=== PATIENT | female | born 1990 | race African-American/Black ===

== ENCOUNTER 2018-08-22 11:07 | Emergency (ER) | payer OTHER ==
[~2018-08-22] VITALS: Ht 157.5 cm; Wt 83.6 kg
[2018-08-22 11:11] VITALS: BP 126/82; TEMP 98.1
[2018-08-22 11:33] LABS: COLLECTION METHOD CLEAN CATCH
[2018-08-22 11:37] LABS: BASO % 0.4 % (0.0-2.0); EOS % 0.2 % (0-4.0); GRAN # 5.4 (1.4-6.5); GRAN % 64.2 % (42.2-75.2); HEMATOCRIT 39.9 % (37.0-47.0); LYMPH # 2.4 (1.2-3.4); LYMPH % 28.2 % (20.0-51.0); MEAN CELL VOLUME 90 fl (80.0-100.0); MEAN CORPUSCULAR HEMOGLOBIN 29 pg (27.0-31.0); MEAN CORPUSCULAR HGB CONC 33 g/dl (33.0-37.0); MEAN PLATELET VOLUME 9.6 fl (7.4-10.4); MONO # 0.6 (0.1-0.6); MONO % 6.8 % (1.7-9.3); PLATELET COUNT 265 K/mm3 (130-400); RED BLOOD COUNT 4.42 M/mm3 (4.10-5.30); REDCELL DISTRIBUTION WIDTH-CV 12.9 % (11.5-14.5)
[2018-08-22 11:40] LABS: MUCOUS Present /lpf; PH 5 (5-8); SQUAMOUS EPITHELIAL 0-2 /hpf; URINE APPEARANCE Clear; URINE BACTERIA None Seen /hpf; URINE BILIRUBIN Negative (NEGATIVE); URINE BLOOD Negative (NEGATIVE); URINE COLOR Yellow; URINE GLUCOSE Negative (NEGATIVE); URINE KETONE Negative (NEGATIVE); URINE LEUKOCYTE ESTERASE Negative (NEGATIVE); URINE NITRATE Negative (NEGATIVE); URINE PROTEIN(semi-quant) Negative (NEGATIVE); URINE RBC 0-2 /hpf; URINE UROBILINOGEN Negative (NEGATIVE)
[2018-08-22 14:52] VITALS: PULSE 99
== END 2018-08-22 14:53 | disposition home or self-care (01) ==
LOC: COL.ER 11:07
PROVIDERS: Physician Assistant
DX: O26.891 Other specified pregnancy related conditions, first trimester (principal); R10.2 Pelvic and perineal pain; Z3A.01 Less than 8 weeks gestation of pregnancy

== ENCOUNTER → 2018-11-02 | Outpatient (CLI) | payer OTHER | LOC: COL.RAD 09:00 | DX: E04.9 Nontoxic goiter, unspecified (principal) ==

== ENCOUNTER 2019-04-16 09:47 | Inpatient (IN) | payer OTHER ==
[~2019-04-16] VITALS: Ht 157.5 cm; Wt 108.6 kg
[2019-04-16] VITALS (16 sets, daily range): BP systolic 125–142; BP diastolic 46–84; PULSE 62–96; TEMP 97.9–98.4
--- NOTE | 2019-04-16 09:50 | NUR ---
Presents to labor and delivery. States water broke about 0815 this morning. Says fluid tinted yellow first time, but clear later. Assessment done, questions offered and answered.
--- NOTE | 2019-04-16 10:00 | NUR ---
Vag exam done by Zahra lance with amnio test. Positive results noted.
[2019-04-16] MEDS ORDERED: PRENATAL TABLET PO (10:06)
[2019-04-16 11:18] LABS: BASO % 0.2 % (0.0-2.0); EOS % 0.3 % (0-4.0); GRAN # 7.5 (1.4-6.5); GRAN % 74.2 % (42.2-75.2); HEMATOCRIT 39.4 % (37.0-47.0); HEMOGLOBIN 12.9 g/dl (12.5-16.0); LYMPH # 1.7 (1.2-3.4); LYMPH % 16.9 % (20.0-51.0); MEAN CELL VOLUME 87 fl (80.0-100.0); MEAN CORPUSCULAR HEMOGLOBIN 29 pg (27.0-31.0); MEAN CORPUSCULAR HGB CONC 33 g/dl (33.0-37.0); MEAN PLATELET VOLUME 10.9 fl (7.4-10.4); MONO # 0.8 (0.1-0.6); MONO % 7.8 % (1.7-9.3); PLATELET COUNT 199 K/mm3 (130-400); RED BLOOD COUNT 4.52 M/mm3 (4.10-5.30); REDCELL DISTRIBUTION WIDTH-CV 14.8 % (11.5-14.5)
--- NOTE | 2019-04-16 12:25 | NUR ---
Pepcid 20 mg iv given as ordered.
[2019-04-17 03:45] VITALS: BP 114/70; PULSE 80; TEMP 98
[2019-04-17 06:20] VITALS: BP 131/71; PULSE 94; TEMP 98.2
[2019-04-17] MEDS ORDERED: IBU800 M1 PO (09:51)
[2019-04-17] MEDS ORDERED: PERCOCET 325 MG1 TA2 PO (09:52)
[2019-04-17 11:46] VITALS: BP 133/85; PULSE 100; TEMP 98.4
[2019-04-17 15:24] VITALS: BP 125/85; PULSE 100; TEMP 98.8
[2019-04-17 20:00] VITALS: BP 123/84; PULSE 114; TEMP 99.5
[2019-04-18 00:15] VITALS: BP 135/80; PULSE 107; TEMP 98.7
[2019-04-18] MEDS ORDERED: IBU800 M1 PO (06:51)
[2019-04-18] MEDS ORDERED: PERCOCET 325 MG1 TA2 PO (06:51)
[2019-04-18 07:30] VITALS: BP 125/78; PULSE 89; TEMP 98.2
[2019-04-18 16:00] VITALS: BP 138/84; PULSE 87; TEMP 98.1
[2019-04-18 20:15] VITALS: BP 134/85; PULSE 100; TEMP 97.4
[2019-04-19 07:00] VITALS: BP 140/88; PULSE 89; TEMP 97.7
--- NOTE | 2019-04-19 09:14 | NUR ---
Initial visit; Parents thanked Homicide Squad Captain for offering congratulations and God's blessings for the of their daughter. Homicide Squad Captain thanked family for choosing [facility].
[2019-04-19 10:35] VITALS: BP 150/87
--- NOTE | 2019-04-19 10:45 | NUR ---
1030 PT SITTING ON THE EDGE OF THE BED DRESSED READY FOR DISCHARGE. PATIENT ASKED RN TO CHECK HER BLOOD PRESSURE, 150/87 LARGE ADULT CUFF ON UPPER LEFT ARM. PT ALSO REQUESTED 2 PERCOCET AT THIS TIME. PT DENIES HEADACHE AND BLURRED VISION. REPORTS FEELING SLIGHTLY DIZZY. PT HAD SHOWERED PRIOR TO CALLING RN IN. RN WILL REASSESS BLOOD PRESSURE IN 30 MIN.
[2019-04-19 11:10] VITALS: BP 145/89
== END 2019-04-19 12:15 | disposition home or self-care (01) | DRG 788 ==
LOC: LDRO 09:47 → LDR 10:19 → OB 15:10
PROVIDERS: ADMIT Obstetrics & Gynecology
PROC: 10D00Z1 Extraction of Products of Conception, Low, Open Approach (ICD-10-PCS; principal; 2019-04-16)
DX: O42.92 Full-term premature rupture of membranes, unspecified as to length of time between rupture and onset of labor (principal); O32.1XX0 Maternal care for breech presentation, not applicable or unspecified; Z3A.39 39 weeks gestation of pregnancy; Z37.0 Single live birth
CPT/HCPCS: J0690; J1885; J2270; J2405; J2590; J7120

== ENCOUNTER 2019-05-12 16:41 | Emergency (ER) | payer OTHER ==
[~2019-05-12] VITALS: Ht 157.5 cm; Wt 94.5 kg
[~2019-05-12 16:41] MED LIST: IBU800 M1 PO; PERCOCET 325 MG1 TA2 PO; PRENATAL TABLET PO
[2019-05-12 16:51] VITALS: BP 124/83; TEMP 97.1
[2019-05-12] MEDS ORDERED: BACTRIM DS 8001 TAB PO (17:54)
[2019-05-12] MEDS ORDERED: CEPHALEXIN500 M1 PO (17:54)
[2019-05-12 18:30] VITALS: PULSE 85
== END 2019-05-12 18:40 | disposition home or self-care (01) ==
LOC: COL.ER 16:41
DX: O90.0 Disruption of cesarean delivery wound (principal)